=== PATIENT | male | born 1955 | race Caucasian/White ===

== ENCOUNTER 2016-06-17 15:39 | Emergency (ER) | payer OTHER ==
[2016-06-17] MEDS ORDERED: VANCOMYCIN INJ 2 GM in SODIUM CHLORIDE 0.9% 500 ML IV STA (16:01)
[2016-06-17] MEDS ORDERED: HYDROmorphone 1 MG/ML SYRINGE ONE ×2 (16:52→18:33)
[2016-06-17] MEDS ORDERED: HYDROmorphone 1 MG/ML SYRINGE IVP STA ×3 (16:52→18:33)
[2016-06-17] MEDS ORDERED: INSULIN REGULAR HUMAN 100 UNIT/1 ML 10 ML MDV IVP STA ×2 (17:00→18:11)
[2016-06-17] MEDS ORDERED: INSULIN REGULAR HUMAN 100 UNIT/1 ML 10 ML MDV ONE ×2 (17:02→18:17)
[2016-06-17] MEDS ORDERED: IBUPROFEN 800 MG TABLET PO STA (17:28)
[2016-06-17] MEDS ORDERED: ACETAMINOPHEN 325 MG TABLET PO STA (18:54)
[2016-06-17] MEDS ORDERED: ACETAMINOPHEN 325 MG TABLET PO ONE (18:55)
== END 2016-06-17 19:50 | disposition short-term general hospital (02) ==
DX: L03.115 Cellulitis of right lower limb (principal); L03.116 Cellulitis of left lower limb; E11.65 Type 2 diabetes mellitus with hyperglycemia; E11.42 Type 2 diabetes mellitus with diabetic polyneuropathy; I10 Essential (primary) hypertension; Z79.4 Long term (current) use of insulin; Z79.51 Long term (current) use of inhaled steroids
CPT/HCPCS: 36415; 80053; 83605; 83690; 85025; 85651; 86140; 87040; 87070; 87077; 87181; 87205; 96365; 96375; 96376; 99284; A9270; J1170; J1815; J3370

== ENCOUNTER 2016-07-14 09:15 | Outpatient (CLI) | payer OTHER | END 2016-07-14 09:16 | disposition EMS.NT | LOC: EMS 09:15 | PROVIDERS: ATTEND Surgery | DX: R68.89 Other general symptoms and signs (principal) ==

== ENCOUNTER 2017-01-04 15:43 | Outpatient (CLI) | payer OTHER ==
--- NOTE | 2017-01-05 13:24 | Ultrasound Report ---
ULTRASOUND LEFT LOWER LE01/04/2017 CLINICAL INDICATION: Persistent pain and swelling following abscess I and D, and antibiotics. TECHNIQUE: Real-time scanning was performed with leather goods sales representative static images obtained. FINDINGS: Ultrasound of the region of pain and swelling identified by the patient was performed. At this site, there is a residual 3.6 x 2.1 x 0.6 cm fluid collection, with edema in the surrounding fat. IMPRESSION: LIKELY RESIDUAL ABSCESS IN THE REGION OF THE PALPABLE ABNORMALITY. JOB #: [id number] EXT JOB #: [id number] [facility]
== END 2017-01-04 15:44 | disposition home or self-care (01) ==
LOC: DI 15:43
PROVIDERS: ATTEND Registered Nurse
DX: L02.416 Cutaneous abscess of left lower limb (principal); M79.662 Pain in left lower leg
CPT/HCPCS: 76882

== ENCOUNTER 2017-08-20 10:57 | Outpatient (CLI) | payer MEDICAID | END 2017-08-20 10:58 | disposition critical access hospital (66) | LOC: EMS 10:57 | PROVIDERS: ATTEND Surgery | DX: R10.31 Right lower quadrant pain (principal) | CPT/HCPCS: A0425; A0429 ==

== ENCOUNTER 2017-08-20 11:58 | Emergency (ER) | payer MEDICAID ==
[2017-08-20] MEDS ORDERED: HYDROmorphone 2 MG/ML VIAL IVP STA ×2 (12:20→14:52)
[2017-08-20 12:25] LABS: BASOPHILS # (AUTO) 0.1 10^3/uL (0.0-0.1); BASOPHILS % (AUTO) 0.7 %; EOSINOPHILS # (AUTO) 0.3 10^3/uL (0.0-0.7); EOSINOPHILS % (AUTO) 3.1 %; HGB - HEMOGLOBIN 12.8 g/dL (14.0-18.0); LYMPHOCYTES # (AUTO) 1.3 10^3/uL (1.5-3.5); LYMPHOCYTES % (AUTO) 11.4 %; MEAN CORPUSCULAR HEMOGLOBIN 31.2 pg (27.0-31.0); MEAN CORPUSCULAR VOLUME 91.8 fL (80.0-94.0); MEAN PLATELET VOLUME 7.2 fL (7.4-11.4); MONOCYTES % (AUTO) 9.1 %; NEUTROPHILS # (AUTO) 8.6 10^3/uL (1.5-6.6); NEUTROPHILS % (AUTO) 75.7 %; PLT - PLATELET COUNT 243 10^3/uL (130-450); RED CELL DISTRIBUTION WIDTH 14.3 % (12.0-15.0); WHITE BLOOD COUNT 11.3 x10^3/uL (4.8-10.8)
--- NOTE | 2017-08-20 12:25 | ED Physician Documentation ---
PD HPI ABD PAIN - Stated complaint Stated Complaint: ABD PAIN - Chief complaint Chief Complaint: Neuro - History obtained from History obtained from: Patient - History of Present Illness Timing - onset: Other (61-year-old gent with history of diabetes and partial colectomy for cancer in 2004 presents with 2 weeks of worsening right lower quadrant pain. It abruptly worsened about a week ago after a large meal and he was constipated for a few days but after taking milk of magnesia has had bowel movements every day for the last 5 days. He is not nauseous and he has not had any vomiting. He does know slightly dark urine. No fevers. He thinks he still has his appendix. Blood sugars have been uncontrolled.) Review of Systems Ten Systems: 10 systems reviewed and negative Constitutional: denies: Fever, Chills, Fatigue, Weight Loss Cardiac: denies: Chest pain / pressure, Palpitations Respiratory: denies: Dyspnea, Cough PD PAST MEDICAL HISTORY - Past Medical History Cardiovascular: Hypertension, High cholesterol, Other Respiratory: Asthma Neuro: Peripheral neuropathy Endocrine/Autoimmune: Type 2 diabetes GI: Chronic constipation, Other : Benign prostate hypertrophy HEENT: Chronic vision loss Psych: Depression Musculoskeletal: Osteoarthritis, Fatigue, Chronic back pain Derm: Other drug resistant infections - Past Surgical History Past Surgical History: Yes General: Bowel surgery, Colonoscopy - Present Medications Home Medications: Ambulatory Orders Medication Instructions Recorded Confirmed Lisinopril 40 mg PO DAILY 07/11/12 08/04/17 Oxybutynin [Ditropan] 5 mg PO DAILY 07/11/12 08/04/17 Albuterol Sulfate [Proair Hfa] 2 puffs INH Q4HR PRN 01/23/15 08/04/17 Furosemide 40 mg PO BID 11/15/15 08/04/17 Insulin Glargine,Hum.rec.anlog 98 mg SQ BID 06/17/16 08/04/17 [Lantus Solostar] Aspirin [Adult Low Dose Aspirin EC] 81 mg PO DAILY 07/22/16 08/04/17 Atorvastatin [Lipitor] 40 mg PO DAILY 07/22/16 08/04/17 Clopidogrel Bisulfate [Clopidogrel] 75 mg PO DAILY 08/20/17 Metformin HCl [Metformin HCl ER] 1,000 mg PO BID 08/20/17 Metoprolol Succinate 50 mg PO DAILY 08/20/17 Montelukast Sodium 10 mg PO DAILY 08/20/17 Nitroglycerin 0.4 mg SL PRN 08/20/17 Pantoprazole Sodium 20 mg PO DAILY 08/20/17 Potassium Chloride 20 meq PO DAILY 08/20/17 Tramadol HCl 50 mg PO DAILY 08/20/17 - Allergies Allergies/Adverse Reactions: Allergies Allergy/AdvReac Type Severity Reaction Status Date / Time codeine [Codeine] Allergy Rash Verified 12/17/16 16:09 Penicillins Allergy Respiratory Verified 12/17/16 16:09 bananas Allergy Respiratory Uncoded 08/30/13 10:39 peanuts Allergy Rash Uncoded 08/30/13 10:39 - Social History Does the pt smoke?: No Smoking Status: Never smoker - Family History Family history: reports: Non contributory - Immunizations Immunizations are current?: Yes PD ED PE NORMAL - Vitals Vital signs reviewed: Yes - General General: Alert and oriented X 3, No acute distress - HEENT HEENT: PERRL, EOMI - Neck Neck: Supple, no meningeal sign, No bony TTP - Cardiac Cardiac: RRR, No murmur - Respiratory Respiratory: No respiratory distress, Clear bilaterally - Abdomen Abdomen: Other (Tender in both lower quadrants with very mild guarding and no rebound tenderness, slightly diminished but not absent bowel tones, somewhat distended.) - Back Back: No CVA TTP, No spinal TTP - Derm Derm: Normal color, Warm and dry - Extremities Extremities: Other (He does have bilateral pitting pedal edema which he says is chronic) - Neuro Neuro: Alert and oriented X 3, Normal speech - Psych Psych: Normal mood, Normal affect Results - Vitals Vitals: Vital Signs - 24 hr 08/20/17 08/20/17 08/20/17 11:59 14:24 17:35 Temperature 36.9 C 37.0 C 36.8 C Heart Rate 84 81 78 Respiratory 20 20 16 Rate Blood Pressure 156/77 H 148/74 H 144/68 H O2 Saturation 96 96 99 Oxygen O2 Source Room air - Labs Labs: Laboratory Tests 08/20/17 08/20/17 08/20/17 12:16 12:16 14:29 WBC 11.3 H RBC 4.10 L Hgb 12.8 L Hct 37.7 L MCV 91.8 MCH 31.2 H MCHC 34.0 RDW 14.3 Plt Count 243 MPV 7.2 L Neut # (Auto) 8.6 H Lymph # (Auto) 1.3 L [place] # (Auto) 1.0 Eos # (Auto) 0.3 Baso # (Auto) 0.1 Absolute Nucleated RBC 0.00 Nucleated RBC % 0.0 Sodium 133 L Potassium 4.7 Chloride 97 L Carbon Dioxide 26 Anion Gap 10.0 BUN 21 H Creatinine 1.3 H Estimated GFR (MDRD) 56 L Glucose 291 H Calcium 8.9 Total Bilirubin 0.5 AST 18 ALT 20 Alkaline Phosphatase 82 Total Protein 7.1 Albumin 2.8 L Globulin 4.3 H Albumin/Globulin Ratio 0.7 L Lipase 17 L Urine Color YELLOW Urine Clarity CLEAR Urine pH 6.0 Ur Specific [place] 1.015 Urine Protein NEGATIVE Urine Glucose (UA) 100 H Urine Ketones NEGATIVE Urine Occult Blood NEGATIVE Urine Nitrite NEGATIVE Urine Bilirubin NEGATIVE Urine Urobilinogen 0.2 (NORMAL) Ur Leukocyte Esterase NEGATIVE Ur Microscopic Review NOT INDICATED Urine Culture Comments NOT INDICATED - Rads (name of study) CT A/P Radiology: EMP read contemporaneously (He has a 7.5 x 5.0 x 7.5 cm periappendiceal abscess.) PD MEDICAL DECISION MAKING - ED course ED course: 61-year-old gentleman with perforated appendicitis and large right lower quadrant abscess. Case is discussed by phone with the on-call surgeon, Dr. Ashwin Moy who felt he should be transferred somewhere with interventional radiology capability for IR guided drainage. We called [place] first, they were full so the talk then called [facility] using the [facility] transfer center. He received ciprofloxacin and Flagyl after blood cultures. [facility] was full, so was [facility], so was [facility]. He was accepted by Dr. Sarah Deutsch to [place] at 4:15 PM and cobras were completed. - Sepsis Event Vital Signs: Vital Signs - 24 hr 08/20/17 08/20/17 08/20/17 11:59 14:24 17:35 Temperature 36.9 C 37.0 C 36.8 C Heart Rate 84 81 78 Respiratory 20 20 16 Rate Blood Pressure 156/77 H 148/74 H 144/68 H O2 Saturation 96 96 99 Oxygen O2 Source Room air Departure - Departure Disposition: 02 Transfer Acute Care Hosp Clinical Impression: Ruptured appendicitis, Appendiceal abscess Condition: Stable Discharge Date/Time: 08/20/17 18:18
[2017-08-20 12:33] LABS: ALBUMIN 2.8 g/dL (3.2-5.5); ALBUMIN/GLOBULIN RATIO 0.7 (1.0-2.2); BILIRUBIN,TOTAL 0.5 mg/dL (0.2-1.0); CALCIUM 8.9 mg/dL (8.5-10.3); CREATININE 1.3 mg/dL (0.6-1.2); TOTAL PROTEIN 7.1 g/dL (6.7-8.2)
[2017-08-20] MEDS ORDERED: SODIUM CHLORIDE 0.9% 1,000 ML IV ONE (12:58)
[2017-08-20] MEDS ORDERED: IOPAMIDOL-300 100 ML VIAL ONE (13:39)
[2017-08-20] MEDS ORDERED: CIPROFLOXACIN 400 MG/200 ML 200 ML IV ONE (13:50)
[2017-08-20] MEDS ORDERED: metroNIDAZOLE 500 MG/100 ML 500 MG/100 ML BAG IV ONE (13:50)
[2017-08-20] MEDS ORDERED: IOPAMIDOL-300 100 ML VIAL IVP ONE (13:51)
--- NOTE | 2017-08-20 14:22 | CT Report ---
Procedure Date: 08/20/2017 Accession Number: [id number] / [id number] Procedure: CT - Abdomen/Pelvis W/ CPT Code: FULL RESULT: EXAM: CT ABDOMEN AND PELVIS EXAM DATE: 08/20/2017 01:50 PM. CLINICAL HISTORY: Right lower quadrant pain. COMPARISONS: ABDOMEN/PELVIS W/ 08/03/2017. TECHNIQUE: Routine helical CT imaging was performed through the abdomen and pelvis. IV contrast: 100 cc Isovue-300. Enteric contrast: No. Reconstructions: Coronal and sagittal. In accordance with CT protocol optimization, one or more of the following dose reduction techniques were utilized for this exam: automated exposure control, adjustment of mA and/or KV based on patient size, or use of iterative reconstructive technique. FINDINGS: Lung Bases: No focal consolidation. No pleural effusion. Mild to moderate cardiomegaly. Liver: Probable hepatic steatosis. No focal hepatic lesion demonstrated. Gallbladder/Bile Ducts: Unremarkable. Spleen: Normal. Pancreas: Atrophic as before. Otherwise no significant abnormality. Adrenal Glands: Normal. Kidneys: No hydronephrosis. Mildly patulous ureters as before. Mild to moderate bilateral perinephric stranding is similar to prior. Peritoneal Cavity/Bowel: No pneumoperitoneum or large ascites. No bowel obstruction or abnormal stool burden. Anastomotic sutures in the transverse colon as before. Diverticulosis without diverticulitis. Gas and fluid collection in the region where the appendix was previously visualized measures 7.5 x 5.0 x 7.5 cm. There is adjacent inflammatory stranding and small free fluid. The appendix itself is not well visualized beyond its proximal-most portion, inseparable from the collection. Pelvic Organs: The urinary bladder and visualized pelvic organs demonstrate no significant abnormality. Vasculature: Atherosclerosis without aneurysm. Bones: No significant abnormality. Other: Small fat-containing ventral hernias again demonstrated. IMPRESSION: 1. Interval development of a right lower quadrant abscess secondary to perforated appendicitis. 2. Chronic and incidental findings as above have not significantly changed compared to prior. [facility]
[2017-08-20 14:34] LABS: BILIRUBIN,URINE NEGATIVE (NEGATIVE); CLARITY,URINE CLEAR (CLEAR); GLUCOSE, URINE (UA) 100 mg/dL (NEGATIVE); KETONES,URINE (UA) NEGATIVE (NEGATIVE); LEUKOCYTE ESTERASE, URINE NEGATIVE (NEGATIVE); NITRITE,URINE NEGATIVE (NEGATIVE); OCCULT BLOOD,URINE NEGATIVE (NEGATIVE); PROTEIN,URINE NEGATIVE (NEGATIVE); UROBILINOGEN,URINE 0.2 (NORMAL) E.U./dL (NORMAL)
[2017-08-20 17:35] VITALS: BP 144/68
== END 2017-08-20 18:18 | disposition short-term general hospital (02) ==
LOC: EDUNIT# → EDBD → ED 11:58 → SUPCPDRO 11:58 → ED 18:18
DX: K35.2 Acute appendicitis with generalized peritonitis (principal); E11.9 Type 2 diabetes mellitus without complications; I10 Essential (primary) hypertension; E78.00 Pure hypercholesterolemia, unspecified; Z85.9 Personal history of malignant neoplasm, unspecified; Z79.84 Long term (current) use of oral hypoglycemic drugs; Z79.4 Long term (current) use of insulin
CPT/HCPCS: 36415; 74177; 80053; 81003; 83690; 85025; 87040; 96361; 96365; 96368; 96375; 99283; 99284; J1170; Q9967; 81001; 87086

== ENCOUNTER 2017-09-23 09:53 | Outpatient (CLI) | payer MEDICAID | END 2017-09-23 09:54 | disposition short-term general hospital (02) | LOC: EMS 09:53 | PROVIDERS: ATTEND Surgery | DX: R53.1 Weakness (principal); R06.02 Shortness of breath; W01.0XXA Fall on same level from slipping, tripping and stumbling without subsequent striking against object, initial encounter; Y93.01 Activity, walking, marching and hiking; Y92.008 Other place in unspecified non-institutional (private) residence as the place of occurrence of the external cause | CPT/HCPCS: A0425; A0427; A0999 ==

== ENCOUNTER 2017-11-10 11:50 | Outpatient (CLI) | payer MEDICAID | END 2017-11-10 11:51 | disposition short-term general hospital (02) | LOC: EMS 11:50 | PROVIDERS: ATTEND Surgery | DX: R07.9 Chest pain, unspecified (principal) | CPT/HCPCS: A0425; A0427; A0999 ==

== ENCOUNTER 2018-03-21 14:25 | Outpatient (CLI) | payer MEDICAID | END 2018-03-21 14:26 | disposition short-term general hospital (02) | LOC: EMS 14:25 | PROVIDERS: ATTEND Surgery | DX: R06.00 Dyspnea, unspecified (principal); R53.1 Weakness; R42 Dizziness and giddiness | CPT/HCPCS: A0170; A0425; A0427; A0999 ==

== ENCOUNTER 2018-05-02 08:00 | Outpatient (CLI) | payer MEDICAID ==
[2018-05-02 19:02] LABS: CALCIUM 9.1 mg/dL (8.5-10.3)
== END 2018-05-02 23:59 | disposition home or self-care (01) ==
LOC: LAB.R 08:00
PROVIDERS: ATTEND Registered Nurse
DX: I11.0 Hypertensive heart disease with heart failure (principal)
CPT/HCPCS: 80048

== ENCOUNTER 2018-05-16 08:00 | Outpatient (CLI) | payer MEDICAID ==
[2018-05-16 18:35] LABS: CREATININE 0.9 mg/dL (0.6-1.2)
== END 2018-05-16 23:59 | disposition home or self-care (01) ==
LOC: LAB.R 08:00
PROVIDERS: ATTEND Registered Nurse
DX: E11.51 Type 2 diabetes mellitus with diabetic peripheral angiopathy without gangrene (principal)
CPT/HCPCS: 80048

== ENCOUNTER 2019-04-03 14:20 | Outpatient (CLI) | payer MEDICARE | END 2019-04-03 14:21 | disposition short-term general hospital (02) | LOC: EMS 14:20 | PROVIDERS: ATTEND Surgery | DX: R06.00 Dyspnea, unspecified (principal); R07.9 Chest pain, unspecified | CPT/HCPCS: A0425; A0427 ==

== ENCOUNTER 2019-07-25 08:38 | Outpatient (CLI) | payer MEDICARE ==
[2019-07-25 09:13] LABS: CALCIUM 9.1 mg/dL (8.5-10.3); CREATININE 1.6 mg/dL (0.6-1.2)
== END 2019-07-25 08:39 | disposition home or self-care (01) ==
LOC: LAB 08:38
PROVIDERS: ATTEND Registered Nurse
DX: I50.33 Acute on chronic diastolic (congestive) heart failure (principal)
CPT/HCPCS: 36415; 80048

== ENCOUNTER 2019-08-09 09:31 | Outpatient (CLI) | payer MEDICARE ==
[2019-08-09 10:03] LABS: CALCIUM 9.2 mg/dL (8.5-10.3); CREATININE 1.7 mg/dL (0.6-1.2)
== END 2019-08-09 09:32 | disposition home or self-care (01) ==
LOC: LAB 09:31
PROVIDERS: ATTEND Registered Nurse
DX: N17.9 Acute kidney failure, unspecified (principal)
CPT/HCPCS: 36415; 80048

== ENCOUNTER 2019-08-09 10:32 | Emergency (ER) | payer MEDICARE ==
[2019-08-09 10:54] LABS: BASOPHILS # (AUTO) 0.1 10^3/uL (0.0-0.1); BASOPHILS % (AUTO) 0.6 %; EOSINOPHILS # (AUTO) 0.4 10^3/uL (0.0-0.7); HGB - HEMOGLOBIN 12.4 g/dL (14.0-18.0); LYMPHOCYTES # (AUTO) 1.6 10^3/uL (1.5-3.5); LYMPHOCYTES % (AUTO) 18.2 %; MEAN CORPUSCULAR HEMOGLOBIN 32.5 pg (27.0-31.0); MEAN CORPUSCULAR HGB CONC 35.8 g/dL (32.0-36.0); MEAN CORPUSCULAR VOLUME 90.8 fL (80.0-94.0); MEAN PLATELET VOLUME 9.6 fL (7.4-11.4); MONOCYTES # (AUTO) 0.6 10^3/uL (0.0-1.0); MONOCYTES % (AUTO) 7.4 %; NEUTROPHILS # (AUTO) 5.8 10^3/uL (1.5-6.6); NEUTROPHILS % (AUTO) 68.3 %; PLT - PLATELET COUNT 134 10^3/uL (130-450); RED BLOOD COUNT 3.81 10^6/uL (4.70-6.10); RED CELL DISTRIBUTION WIDTH 13.7 % (12.0-15.0); WHITE BLOOD COUNT 8.5 x10^3/uL (4.8-10.8)
[2019-08-09 11:10] LABS: ALBUMIN 3.2 g/dL (3.2-5.5); ALBUMIN/GLOBULIN RATIO 1.1 (1.0-2.2); BILIRUBIN,TOTAL 0.8 mg/dL (0.2-1.0); CREATININE 1.9 mg/dL (0.6-1.2); TOTAL PROTEIN 6.2 g/dL (6.7-8.2)
--- NOTE | 2019-08-09 11:14 | XRAY Report ---
PROCEDURE: Chest 1 View X-Ray INDICATIONS: Chest pain TECHNIQUE: One view of the chest was acquired. COMPARISON: None. FINDINGS: Surgical changes and devices: None. Lungs and pleura: No pleural effusions or pneumothorax. Lungs are clear. Mediastinum: Mediastinal contours appear normal. Heart size is normal. Bones and chest wall: No suspicious bony lesions. Overlying soft tissues appear unremarkable. IMPRESSION: No acute disease Reviewed by: Moe Roberts MD on 08/09/2019 11:13 AM PDT Approved by: Moe Roberts MD on 08/09/2019 11:13 AM PDT Station ID: [id number]
[2019-08-09] MEDS ORDERED: SODIUM CHLORIDE 0.9% 1,000 ML IV STA ×2 (11:21→13:00)
--- NOTE | 2019-08-09 11:28 | ED Physician Documentation ---
History of Present Illness - Stated complaint Stated Complaint: WEAKNESS - Chief complaint Chief Complaint: General - History obtained from History obtained from: Patient - History of Present Illness Timing: How many weeks ago (3) - Additonal information Additional information: 63-year-old male with a history of diabetes hypertension and is status post colon resection for colon cancer in remission has been followed at the wound clinic in the [facility] and today he went in for his final appointment and was noted to be profoundly weak. He was so weak he could not stand up from the exam table. He indicates that his weakness has been present for the past 3 weeks and it has come and gone and at times he is not able to stand up because of the weakness. He felt today that he might collapse on the way into the hospital. He is taking some Lasix for congestive heart failure and he has diabetes. He indicates that his sugars have been running in the upper 100 range. He is getting up 5-6 times per night to urinate. His weakness has been undulating over the past 3 weeks Review of Systems Constitutional: denies: Fever Eyes: denies: Decreased vision Ears: denies: Ear pain Nose: denies: Congestion Throat: denies: Sore throat Cardiac: reports: Chest pain / pressure, Pedal edema. denies: Palpitations, Calf pain Respiratory: reports: Dyspnea. denies: Cough GI: denies: Abdominal Pain, Nausea, Vomiting : reports: Frequency. denies: Dysuria PD PAST MEDICAL HISTORY - Past Medical History Past Medical History: Yes Cardiovascular: Congestive heart failure, Hypertension, High cholesterol, Other Respiratory: Asthma Neuro: Peripheral neuropathy Endocrine/Autoimmune: Type 2 diabetes GI: Chronic constipation, Other : Benign prostate hypertrophy, Retention HEENT: Chronic vision loss Psych: Depression Musculoskeletal: Osteoarthritis, Fatigue, Chronic back pain Derm: Other drug resistant infections Other Past Medical History: 1* AV block, systolic heart failure, dependent e heath, thrombocytopenia, - Past Surgical History Past Surgical History: Yes General: Appendectomy, Bowel surgery, Colonoscopy Cardiovascular: Coronary stent - Present Medications Home Medications: Ambulatory Orders Medication Instructions Recorded Confirmed Lisinopril 40 mg PO DAILY 07/11/12 07/25/19 Insulin Glargine,Hum.rec.anlog 44 units SQ DAILY 06/17/16 07/25/19 [Lantus Solostar] Aspirin [Adult Low Dose Aspirin EC] 81 mg PO DAILY 07/22/16 07/25/19 Atorvastatin [Lipitor] 40 mg PO DAILY 07/22/16 07/25/19 Metformin HCl [Metformin ER 1,000 mg PO BID 08/20/17 07/25/19 Osmotic] Metoprolol Succinate 100 mg PO BID 08/20/17 07/25/19 Pantoprazole Sodium 40 mg PO DAILY 08/20/17 07/25/19 Insulin Lispro [Humalog] 30 - 34 units SUBQ BID 01/25/19 08/02/19 Multivitamin [Multiple Vitamins] 1 each PO DAILY 01/25/19 07/25/19 Spironolactone 25 mg PO DAILY 01/25/19 07/25/19 Levofloxacin [Levaquin] 750 mg PO DAILY 01/30/19 07/25/19 Albuterol Sulfate [Proair Hfa 2 puffs PO Q6HR PRN 07/25/19 07/25/19 Inhaler] Fluticasone Propionate 2 spray ERVIN DAILY 07/25/19 07/25/19 Lidocaine 1 applic TD TID PRN 07/25/19 07/25/19 Nitroglycerin 1 tab PO DAILY PRN 07/25/19 07/25/19 Torsemide 20 mg PO DAILY 07/25/19 07/25/19 Triamcinolone 0.1% Cream [Kenalog 1 applic TD BID PRN 07/25/19 07/25/19 0.1% Cream] - Allergies Allergies/Adverse Reactions: Allergies Allergy/AdvReac Type Severity Reaction Status Date / Time banana Allergy Respiratory Verified 08/09/19 10:45 codeine [Codeine] Allergy Rash Verified 08/09/19 10:45 peanut Allergy Rash Verified 08/09/19 10:45 Penicillins Allergy Respiratory Verified 08/09/19 10:45 tamsulosin AdvReac Unknown Verified 08/09/19 10:45 - Social History Does the pt smoke?: No Smoking Status: Never smoker Does the pt drink ETOH?: No Does the pt have substance abuse?: No - Immunizations Immunizations are current?: Yes - POLST Patient has POLST: No PD ED PE NORMAL - Vitals Vital signs reviewed: Yes (wide pulse pressure) - General General: Alert and oriented X 3, No acute distress, Well developed/nourished - HEENT HEENT: Atraumatic, PERRL, EOMI, Other (dry mucous membranes ) - Neck Neck: Supple, no meningeal sign, No bony TTP - Cardiac Cardiac: RRR, No murmur - Respiratory Respiratory: No respiratory distress, Clear bilaterally - Abdomen Abdomen: Normal bowel sounds, Soft, Non tender, Non distended, No organomegaly, Other (obese) - Back Back: No CVA TTP, No spinal TTP - Derm Derm: Normal color, Warm and dry, No rash - Extremities Extremities: No deformity, No calf tenderness / cord, Other (trace edema only ) - Neuro Neuro: Alert and oriented X 3, terminal computer operator 2-12 intact, No motor deficit, Normal speech Eye Opening: Spontaneous Motor: Obeys Commands Verbal: Oriented GCS Score: 15 - Psych Psych: Normal mood, Normal affect Results - Vitals Vitals: Vital Signs - 24 hr 08/09/19 08/09/19 08/09/19 10:32 11:05 11:52 Temperature 36.9 C Heart Rate 73 68 68 Respiratory 20 20 14 Rate Blood Pressure 139/62 H 140/58 H 131/74 H O2 Saturation 99 95 97 08/09/19 08/09/19 13:18 13:31 Temperature Heart Rate 70 68 Respiratory 20 16 Rate Blood Pressure 148/128 H 148/99 H O2 Saturation 100 98 Oxygen O2 Source Room air - EKG (time done) 1040 Rate: Rate (enter#) (68) [place]: LAD Compare to prior EKG: Unchanged from prior EKG (SPT 11-10-2017 no sig change) Computer interpretation: Agree with computer - Labs Labs: Laboratory Tests 08/09/19 08/09/19 08/09/19 10:46 10:46 10:46 WBC 8.5 RBC 3.81 L Hgb 12.4 L Hct 34.6 L MCV 90.8 MCH 32.5 H MCHC 35.8 RDW 13.7 Plt Count 134 MPV 9.6 Neut # (Auto) 5.8 Lymph # (Auto) 1.6 [place] # (Auto) 0.6 Eos # (Auto) 0.4 Baso # (Auto) 0.1 Absolute Nucleated RBC 0.00 Nucleated RBC % 0.0 Sodium 137 Potassium 4.5 Chloride 98 L Carbon Dioxide 28 Anion Gap 11.0 BUN 31 H Creatinine 1.9 H Estimated GFR (MDRD) 36 L Glucose 287 H Calcium 9.0 Total Bilirubin 0.8 AST 19 ALT 19 Alkaline Phosphatase 60 Troponin I High Sens 16.8 Total Protein 6.2 L Albumin 3.2 Globulin 3.0 Albumin/Globulin Ratio 1.1 Lipase 22 Urine Color Urine Clarity Urine pH Ur Specific [place] Urine Protein Urine Glucose (UA) Urine Ketones Urine Occult Blood Urine Nitrite Urine Bilirubin Urine Urobilinogen Ur Leukocyte Esterase Urine RBC Urine WBC Ur Squamous Epith Cells Urine Bacteria Urine Casts Ur Microscopic Review Urine Culture Comments 08/09/19 13:17 WBC RBC Hgb Hct MCV MCH MCHC RDW Plt Count MPV Neut # (Auto) Lymph # (Auto) [place] # (Auto) Eos # (Auto) Baso # (Auto) Absolute Nucleated RBC Nucleated RBC % Sodium Potassium Chloride Carbon Dioxide Anion Gap BUN Creatinine Estimated GFR (MDRD) Glucose Calcium Total Bilirubin AST ALT Alkaline Phosphatase Troponin I High Sens Total Protein Albumin Globulin Albumin/Globulin Ratio Lipase Urine Color YELLOW Urine Clarity CLEAR Urine pH 6.0 Ur Specific [place] 1.020 Urine Protein 100 H Urine Glucose (UA) NEGATIVE Urine Ketones NEGATIVE Urine Occult Blood TRACE-INTA Urine Nitrite NEGATIVE Urine Bilirubin NEGATIVE Urine Urobilinogen 0.2 (NORMAL) Ur Leukocyte Esterase NEGATIVE Urine RBC 0-5 Urine WBC 0-3 Ur Squamous Epith Cells NONE SEEN Urine Bacteria Few Urine Casts 0-2 Fine Granular Ur Microscopic Review INDICATED Urine Culture Comments NOT INDICATED - Rads (name of study) chest Radiology: Prelim report reviewed (Impression: No acute disease.), EMP read indepedently, See rad report Procedures - IVC sono (time) 1108 Bedside IVC sono: IVC measures (cm) (0.97), IVC collapsed c insp (cm) (compl ete), Dehydration (est 2 liter deficit) PD MEDICAL DECISION MAKING - ED course Complexity details: reviewed results, re-evaluated patient, considered differential, d/w patient ED course: 63-year-old diabetic male presents to the emergency department with profound weakness. His weakness has been undulating over the past 3 weeks. He is found to be dehydrated on interrogation of the inferior vena cava and intravenous saline is begun. After 1 L of saline is in the patient is able to stand at the side of the bed he still complains of some mild dizziness associated with this lightheadedness. A second liter of saline is administered. Departure - Departure Disposition: 01 Home, Self Care Clinical Impression: Dehydration Condition: Stable Instructions: ED Dehydration Follow-Up: Rosanna Beck ARNP [Primary Care Provider] -
[2019-08-09] MEDS ORDERED: INSULIN REGULAR HUMAN 100 UNIT/1 ML 10 ML MDV IVP STA (11:33)
[2019-08-09] MEDS ORDERED: ACETAMINOPHEN 325 MG TABLET PO STA (12:00)
[2019-08-09 13:35] LABS: BILIRUBIN,URINE NEGATIVE (NEGATIVE); GLUCOSE, URINE (UA) NEGATIVE (NEGATIVE); KETONES,URINE (UA) NEGATIVE (NEGATIVE); LEUKOCYTE ESTERASE, URINE NEGATIVE (NEGATIVE); NITRITE,URINE NEGATIVE (NEGATIVE); OCCULT BLOOD,URINE TRACE-INTA (NEGATIVE); PROTEIN,URINE 100 mg/dL (NEGATIVE); UROBILINOGEN,URINE 0.2 (NORMAL) E.U./dL (NORMAL)
[2019-08-09 13:45] LABS: CLARITY,URINE CLEAR (CLEAR)
[2019-08-09 13:59] LABS: BACTERIA,URINE Few /HPF (None Seen); CASTS, URINE 0-2 Fine Granular /LPF; RBC,URINE 0-5 /HPF (0-5); SQUAMOUS EPITHELIAL CELL,UR NONE SEEN (<= Few)
[2019-08-09 14:49] VITALS: BP 160/82
== END 2019-08-09 15:00 | disposition home or self-care (01) ==
LOC: ED 10:32
DX: E86.0 Dehydration (principal); E11.42 Type 2 diabetes mellitus with diabetic polyneuropathy; Z79.4 Long term (current) use of insulin; I11.0 Hypertensive heart disease with heart failure; I50.20 Unspecified systolic (congestive) heart failure; Z79.82 Long term (current) use of aspirin; N40.1 Benign prostatic hyperplasia with lower urinary tract symptoms; R33.8 Other retention of urine; Z85.038 Personal history of other malignant neoplasm of large intestine; Z90.49 Acquired absence of other specified parts of digestive tract; N17.9 Acute kidney failure, unspecified
CPT/HCPCS: 36415; 71045; 80048; 80053; 81001; 83690; 84484; 85025; 93005; 96360; 96361; 99284; A9270; J1815; 81003; 87086

== ENCOUNTER 2019-10-23 13:33 | Outpatient (CLI) | payer MEDICARE ==
[2019-10-23 20:30] LABS: CALCIUM 9.3 mg/dL (8.5-10.3)
[2019-10-23 20:32] LABS: BILIRUBIN,URINE NEGATIVE (NEGATIVE); GLUCOSE, URINE (UA) 500 mg/dL (NEGATIVE); KETONES,URINE (UA) NEGATIVE (NEGATIVE); LEUKOCYTE ESTERASE, URINE NEGATIVE (NEGATIVE); NITRITE,URINE NEGATIVE (NEGATIVE); OCCULT BLOOD,URINE TRACE-INTA (NEGATIVE); PROTEIN,URINE 100 mg/dL (NEGATIVE); UROBILINOGEN,URINE 0.2 (NORMAL) E.U./dL (NORMAL)
[2019-10-23 20:39] LABS: CLARITY,URINE HAZY (CLEAR)
[2019-10-23 20:54] LABS: BACTERIA,URINE Few /HPF (None Seen); MUCUS,URINE Few Strands; RBC,URINE 0-5 /HPF (0-5); SQUAMOUS EPITHELIAL CELL,UR MANY Squamous (<= Few)
[2019-10-23 20:55] LABS: CASTS, URINE 11-25 Hyaline Casts /LPF; SPERM,URINE PRESENT
== END 2019-10-23 13:34 | disposition home or self-care (01) ==
LOC: LAB.S 13:33
PROVIDERS: ATTEND Internal Medicine Nephrology
DX: M32.10 Systemic lupus erythematosus, organ or system involvement unspecified (principal); N00.9 Acute nephritic syndrome with unspecified morphologic changes; I77.6 Arteritis, unspecified; D47.2 Monoclonal gammopathy; R39.15 Urgency of urination; I50.32 Chronic diastolic (congestive) heart failure; E83.30 Disorder of phosphorus metabolism, unspecified; N25.81 Secondary hyperparathyroidism of renal origin; I50.9 Heart failure, unspecified; M81.0 Age-related osteoporosis without current pathological fracture; N25.0 Renal osteodystrophy
CPT/HCPCS: 36415; 80048; 81001; 81599; 82570; 83520; 83880; 83970; 84100; 84155; 84156; 84165; 84166; 86021; 86225; 86334; 86335; 87086

== ENCOUNTER 2020-02-05 06:25 | Outpatient (CLI) | payer MEDICARE | END 2020-02-05 06:26 | disposition short-term general hospital (02) | LOC: EMS 06:25 | PROVIDERS: ATTEND Surgery | DX: R06.00 Dyspnea, unspecified (principal); R42 Dizziness and giddiness; R07.9 Chest pain, unspecified | CPT/HCPCS: A0425; A0427 ==

== ENCOUNTER 2020-03-26 12:45 | Outpatient (CLI) | payer MEDICARE ==
[2020-03-26 14:35] LABS: BASOPHILS % (AUTO) 0.5 %; EOSINOPHILS # (AUTO) 0.5 10^3/uL (0.0-0.7); EOSINOPHILS % (AUTO) 5.8 %; HGB - HEMOGLOBIN 11.8 g/dL (14.0-18.0); LYMPHOCYTES # (AUTO) 1.5 10^3/uL (1.5-3.5); LYMPHOCYTES % (AUTO) 19.4 %; MEAN CORPUSCULAR HEMOGLOBIN 31.5 pg (27.0-31.0); MEAN CORPUSCULAR HGB CONC 35.1 g/dL (32.0-36.0); MEAN CORPUSCULAR VOLUME 89.6 fL (80.0-94.0); MEAN PLATELET VOLUME 10.1 fL (7.4-11.4); MONOCYTES # (AUTO) 0.6 10^3/uL (0.0-1.0); NEUTROPHILS # (AUTO) 5.2 10^3/uL (1.5-6.6); NEUTROPHILS % (AUTO) 65.9 %; PLT - PLATELET COUNT 154 10^3/uL (130-450); RED BLOOD COUNT 3.75 10^6/uL (4.70-6.10); RED CELL DISTRIBUTION WIDTH 13.4 % (12.0-15.0); WHITE BLOOD COUNT 7.9 x10^3/uL (4.8-10.8)
[2020-03-26 14:49] LABS: CALCIUM 9.4 mg/dL (8.5-10.3)
[2020-03-26 15:37] LABS: HEMOGLOBIN A1c% 8.8 % (4.27-6.07)
== END 2020-03-26 23:59 | disposition home or self-care (01) ==
LOC: LAB.R 12:45
PROVIDERS: ATTEND Registered Nurse
DX: E11.22 Type 2 diabetes mellitus with diabetic chronic kidney disease (principal); E11.65 Type 2 diabetes mellitus with hyperglycemia
CPT/HCPCS: 36415; 80048; 83036; 85025

== ENCOUNTER 2020-04-05 13:35 | Outpatient (CLI) | payer MEDICARE, MEDICAID ==
[2020-04-05 15:27] LABS: CALCIUM 9.4 mg/dL (8.5-10.3); CREATININE 2.1 mg/dL (0.6-1.2)
== END 2020-04-05 23:59 | disposition home or self-care (01) ==
LOC: LAB.R 13:35
PROVIDERS: ATTEND Registered Nurse
DX: E11.22 Type 2 diabetes mellitus with diabetic chronic kidney disease (principal); L97.221 Non-pressure chronic ulcer of left calf limited to breakdown of skin
CPT/HCPCS: 80048; 87070; 87077; 87181; 87205

== ENCOUNTER 2020-04-09 12:45 | Outpatient (CLI) | payer MEDICARE, MEDICAID ==
[2020-04-09 15:17] LABS: CALCIUM 9.2 mg/dL (8.5-10.3); CREATININE 2.5 mg/dL (0.6-1.2)
== END 2020-04-09 23:59 | disposition home or self-care (01) ==
LOC: LAB.R 12:45
PROVIDERS: ATTEND Registered Nurse
DX: E87.5 Hyperkalemia (principal)
CPT/HCPCS: 36415; 80048

== ENCOUNTER 2020-04-25 13:03 | Outpatient (CLI) | payer MEDICARE, MEDICAID ==
--- NOTE | 2020-04-25 14:33 | XRAY Report ---
PROCEDURE: Knee 3 View LT INDICATIONS: CONTUSION OF LEFT KNEE TECHNIQUE: 3 views of the left knee were acquired. COMPARISON: Left knee radiographs 02/02/2018 FINDINGS: Bones: No acute fractures or dislocations. No suspicious bony lesions. There is mild narrowing of the medial femorotibial compartment joint space. Soft tissues: Small joint effusion. No suspicious soft tissue calcifications. IMPRESSION: No acute osseous abnormality. Small joint effusion. If there is clinical concern or pers istent symptoms, additional imaging such as repeat radiographs or advanced imaging (e.g. CT, MRI) may be helpful for further evaluation. Reviewed by: Yefri Ricks MD on 04/25/2020 2:31 PM PST Approved by: Yefri Ricks MD on 04/25/2020 2:31 PM PST Station ID: [id number]
== END 2020-04-25 13:04 | disposition home or self-care (01) ==
LOC: DI.S 13:03
PROVIDERS: ATTEND Registered Nurse
DX: S80.02XA Contusion of left knee, initial encounter (principal)

== ENCOUNTER 2020-06-07 08:00 | Outpatient (CLI) | payer MEDICARE, MEDICAID ==
[2020-06-07 21:43] LABS: CREATININE 2.5 mg/dL (0.6-1.2); PHOSPHORUS 4.3 mg/dL (2.5-4.6)
[2020-06-07 22:03] LABS: POTASSIUM 6.2 mmol/L (3.5-5.0)
[2020-06-14 08:34] LABS: IMMUNOGLOBULIN A 342 (H); IMMUNOGLOBULIN G 1018
[2020-06-14 08:35] LABS: IMMUNOGLOBULIN M 31 (L)
== END 2020-06-07 23:59 | disposition home or self-care (01) ==
LOC: LAB.S 08:00
PROVIDERS: ATTEND Registered Nurse
DX: I50.22 Chronic systolic (congestive) heart failure (principal); N18.4 Chronic kidney disease, stage 4 (severe); R89.4 Abnormal immunological findings in specimens from other organs, systems and tissues
CPT/HCPCS: 36415; 80048; 81599; 82784; 83880; 83970; 84100; 84155; 84165

== ENCOUNTER 2020-06-14 13:15 | Outpatient (CLI) | payer MEDICARE, MEDICAID | END 2020-06-14 23:59 | disposition home or self-care (01) | LOC: LAB.R 13:15 | PROVIDERS: ATTEND Registered Nurse | DX: L97.221 Non-pressure chronic ulcer of left calf limited to breakdown of skin (principal) | CPT/HCPCS: 87070; 87077; 87181; 87205 ==

== ENCOUNTER 2020-06-25 08:00 | Outpatient (CLI) | payer MEDICARE, MEDICAID ==
[2020-06-25 14:42] LABS: CALCIUM 9.6 mg/dL (8.5-10.3); CREATININE 3.2 mg/dL (0.6-1.2)
== END 2020-06-25 23:59 | disposition home or self-care (01) ==
LOC: LAB.R 08:00
PROVIDERS: ATTEND Registered Nurse
DX: E11.42 Type 2 diabetes mellitus with diabetic polyneuropathy (principal)
CPT/HCPCS: 80048

== ENCOUNTER 2020-08-20 02:35 | Outpatient (CLI) | payer MEDICARE, MEDICAID | END 2020-08-20 02:36 | disposition critical access hospital (66) | LOC: EMS 02:35 | DX: R53.1 Weakness (principal); R19.7 Diarrhea, unspecified | CPT/HCPCS: A0425; A0427 ==

== ENCOUNTER 2020-08-20 03:08 | Emergency (ER) | payer MEDICARE, MEDICAID ==
[2020-08-20] MEDS ORDERED: SODIUM CHLORIDE 0.9% 1,000 ML IV STA (03:27)
--- NOTE | 2020-08-20 04:04 | ED Physician Documentation ---
History of Present Illness - Stated complaint Stated Complaint: WEAKNESS - Chief complaint Chief Complaint: Neuro - History obtained from History obtained from: Patient, EMS - History of Present Illness Timing: Today Pain level max: 0 Pain level now: 0 - Additonal information Additional information: BIBA. patient tells me he woke up on the floor, having apparently rolled off / fallen out of bed. he found that he was very weak, generalized weakness. he was too weak to stand back up and family couldnt get him back up and thus called 911. EMS found patient in very hot room (current heat wave), and forehead temp was 103. they also note patients mentation was mildly confused, slow with some answers. however, once he was loaded into the ambulance, temp rechecked and is normal, and his mentation returned to baseline, and weakness has nearly resolved. FSBS 267 en route Review of Systems Constitutional: reports: Reviewed and negative Eyes: reports: Reviewed and negative Cardiac: reports: Reviewed and negative Respiratory: reports: Reviewed and negative GI: reports: Reviewed and negative : denies: Dysuria, Frequency Skin: reports: Reviewed and negative Musculoskeletal: reports: Reviewed and negative Neurologic: reports: Generalized weakness, Confused (resolved). denies: Focal weakness, Numbness, Headache, LOC PD PAST MEDICAL HISTORY - Past Medical History Past Medical History: Yes Cardiovascular: Congestive heart failure, Hypertension, High cholesterol, Other Respiratory: Asthma Neuro: Peripheral neuropathy Endocrine/Autoimmune: Type 2 diabetes GI: Chronic constipation : Benign prostate hypertrophy, Retention, Incontinence, Renal insuffiency HEENT: Chronic vision loss Psych: Depression Musculoskeletal: Osteoarthritis, Fatigue, Chronic back pain Derm: Other drug resistant infections - Past Surgical History Past Surgical History: Yes General: Appendectomy, Bowel surgery, Colonoscopy Cardiovascular: Coronary stent - Present Medications Home Medications: Ambulatory Orders Medication Instructions Recorded Confirmed Lisinopril 40 mg PO DAILY 07/11/12 08/20/20 Insulin Glargine,Hum.rec.anlog 84 units SQ DAILY 06/17/16 08/20/20 [Lantus Solostar] Aspirin [Adult Low Dose Aspirin EC] 81 mg PO DAILY 07/22/16 08/20/20 Atorvastatin [Lipitor] 40 mg PO DAILY 07/22/16 08/20/20 Metoprolol Succinate 100 mg PO BID 08/20/17 08/20/20 Pantoprazole Sodium 40 mg PO DAILY 08/20/17 08/20/20 Insulin Lispro [Humalog] 34 units SUBQ DAILYWM 01/25/19 08/20/20 Multivitamin [Multiple Vitamins] 1 each PO DAILY 01/25/19 08/20/20 Spironolactone 25 mg PO DAILY 01/25/19 08/20/20 Albuterol Sulfate [Proair Hfa 2 puffs PO Q6HR PRN 07/25/19 08/20/20 Inhaler] Lidocaine 1 applic TD TID PRN 07/25/19 08/20/20 Nitroglycerin 1 tab PO DAILY PRN 07/25/19 08/20/20 Torsemide 20 mg PO DAILY 07/25/19 08/20/20 amLODIPine [Norvasc] 2.5 mg PO DAILY 01/11/20 08/20/20 - Allergies Allergies/Adverse Reactions: Allergies Allergy/AdvReac Type Severity Reaction Status Date / Time banana Allergy Respiratory Verified 08/20/20 03:09 codeine [Codeine] Allergy Rash Verified 08/20/20 03:09 peanut Allergy Rash Verified 08/20/20 03:09 Penicillins Allergy Respiratory Verified 08/20/20 03:09 tamsulosin AdvReac Unknown Verified 08/20/20 03:09 - Social History Does the pt smoke?: No Smoking Status: Never smoker Does the pt drink ETOH?: No Does the pt have substance abuse?: No - Immunizations Immunizations are current?: Yes - POLST Patient has POLST: No PD ED PE NORMAL - Vitals Vital signs reviewed: Yes - General General: Alert and oriented X 3, No acute distress, Well developed/nourished - HEENT HEENT: Atraumatic, PERRL, EOMI, Moist mucous membranes - Neck Neck: Supple, no meningeal sign - Cardiac Cardiac: RRR, No murmur, No gallop, No rub - Respiratory Respiratory: No respiratory distress, Clear bilaterally - Abdomen Abdomen: Soft, Non tender, Other (obese) - Back Back: No CVA TTP - Derm Derm: Normal color, Warm and dry - Extremities Extremities: No edema - Neuro Neuro: Alert and oriented X 3, No motor deficit, No sensory deficit, Normal speech Eye Opening: Spontaneous Motor: Obeys Commands Verbal: Oriented GCS Score: 15 Results - Vitals Vitals: Oxygen O2 Source Room air - EKG (time done) No standard instances Rate: Rate (enter#) (95) Rhythm: NSR [place]: LAD Intervals: Normal [place] QRS: Normal Ischemia: Normal ST segments - Labs Labs: Laboratory Tests 08/20/20 08/20/20 08/20/20 04:14 04:14 04:14 WBC 11.9 H RBC 3.32 L Hgb 10.4 L Hct 30.4 L MCV 91.6 MCH 31.3 H MCHC 34.2 RDW 13.2 Plt Count 195 MPV 9.5 Neut # (Auto) 8.8 H Lymph # (Auto) 1.7 [place] # (Auto) 1.1 H Eos # (Auto) 0.2 Baso # (Auto) 0.1 Absolute Nucleated RBC 0.00 Nucleated RBC % 0.0 Sodium 134 L Potassium 4.7 Chloride 100 L Carbon Dioxide 25 Anion Gap 9.0 BUN 55 H Creatinine 3.1 H Estimated GFR (MDRD) 20 L Glucose 288 H Calcium 8.6 Total Bilirubin 0.9 AST 18 ALT 17 Alkaline Phosphatase 57 B-Natriuretic Peptide 212 H Total Protein 6.8 Albumin 3.4 Globulin 3.4 Albumin/Globulin Ratio 1.0 Lipase 17 L - Rads (name of study) C[facility] Radiology: Prelim report reviewed, See rad report PD MEDICAL DECISION MAKING - ED course Complexity details: reviewed old records, reviewed results, re-evaluated patient, considered differential, d/w patient Departure - Departure Disposition: 01 Home, Self Care Clinical Impression: Weakness Condition: Good Instructions: ED Weakness [facility] Follow-Up: Rosanna Beck ARNP [Primary Care Provider] - Discharge Date/Time: 08/20/20 11:46
[2020-08-20 04:19] LABS: BASOPHILS # (AUTO) 0.1 10^3/uL (0.0-0.1); BASOPHILS % (AUTO) 0.6 %; EOSINOPHILS # (AUTO) 0.2 10^3/uL (0.0-0.7); EOSINOPHILS % (AUTO) 1.7 %; HCT - HEMATOCRIT 30.4 % (42.0-52.0); HGB - HEMOGLOBIN 10.4 g/dL (14.0-18.0); LYMPHOCYTES # (AUTO) 1.7 10^3/uL (1.5-3.5); LYMPHOCYTES % (AUTO) 14.1 %; MEAN CORPUSCULAR HEMOGLOBIN 31.3 pg (27.0-31.0); MEAN CORPUSCULAR HGB CONC 34.2 g/dL (32.0-36.0); MEAN CORPUSCULAR VOLUME 91.6 fL (80.0-94.0); MEAN PLATELET VOLUME 9.5 fL (7.4-11.4); MONOCYTES # (AUTO) 1.1 10^3/uL (0.0-1.0); MONOCYTES % (AUTO) 8.9 %; NEUTROPHILS # (AUTO) 8.8 10^3/uL (1.5-6.6); NEUTROPHILS % (AUTO) 74.1 %; PLT - PLATELET COUNT 195 10^3/uL (130-450); RED BLOOD COUNT 3.32 10^6/uL (4.70-6.10); RED CELL DISTRIBUTION WIDTH 13.2 % (12.0-15.0); WHITE BLOOD COUNT 11.9 x10^3/uL (4.8-10.8)
[2020-08-20 04:31] LABS: ALBUMIN 3.4 g/dL (3.2-5.5); BILIRUBIN,TOTAL 0.9 mg/dL (0.2-1.0); CALCIUM 8.6 mg/dL (8.5-10.3); CREATININE 3.1 mg/dL (0.6-1.2); POTASSIUM 4.7 mmol/L (3.5-5.0); TOTAL PROTEIN 6.8 g/dL (6.7-8.2)
--- NOTE | 2020-08-20 07:21 | CT Report ---
PROCEDURE: HEAD WO INDICATIONS: AMS TECHNIQUE: Noncontrast 4.5 mm thick angled axial sections acquired from the foramen magnum to the vertex. For r adiation dose reduction, the following was used: automated exposure control, adjustment of mA and/or kV according to patient size. COMPARISON: None. FINDINGS: Image quality: Excellent. CSF spaces: Basal cisterns are patent. No extra-axial fluid collections. Ventricles are normal in size and shape. Brain: No midline shift. No intracranial masses or hemorrhage. Mild cerebral volume loss. [place]-wh[place] te matter interface is normal. Skull and face: Calvarium and visualized facial bones are intact, without suspicious lesions. Sinuses: Visualized sinuses and mastoids are clear. IMPRESSION: No acute intracranial metastatic disease. No significant discrepancy with the preliminary report. Reviewed by: Lex Alfaro MD on 08/20/2020 7:19 AM PDT Approved by: Lex Alfaro MD on 08/20/2020 7:19 AM PDT Station ID: [id number]
[2020-08-20] MEDS ORDERED: ACETAMINOPHEN 325 MG TABLET PO STA (11:19)
[2020-08-20 11:26] VITALS: BP 142/64
== END 2020-08-20 11:46 | disposition home or self-care (01) ==
LOC: EDBD → ED 03:08
DX: R53.1 Weakness (principal); R41.0 Disorientation, unspecified; W06.XXXA Fall from bed, initial encounter; Y92.003 Bedroom of unspecified non-institutional (private) residence as the place of occurrence of the external cause; I11.0 Hypertensive heart disease with heart failure; I50.9 Heart failure, unspecified; I44.4 Left anterior fascicular block; E11.42 Type 2 diabetes mellitus with diabetic polyneuropathy; Z79.4 Long term (current) use of insulin; Z79.82 Long term (current) use of aspirin
CPT/HCPCS: 36415; 70450; 80053; 83690; 83880; 85025; 99283; 99284; A9270

== ENCOUNTER 2020-12-31 11:24 | Outpatient (CLI) | payer MEDICAID | END 2020-12-31 11:25 | disposition short-term general hospital (02) | LOC: EMS 11:24 | DX: R53.1 Weakness (principal); R42 Dizziness and giddiness; R06.02 Shortness of breath | CPT/HCPCS: A0425; A0429; A0999 ==

== ENCOUNTER 2021-02-04 10:48 | Outpatient (CLI) | payer MEDICARE, MEDICAID | END 2021-02-04 10:49 | disposition short-term general hospital (02) | LOC: EMS 10:48 | DX: R06.02 Shortness of breath (principal); R60.0 Localized edema | CPT/HCPCS: A0425; A0429 ==

== ENCOUNTER 2021-03-01 18:37 | Outpatient (CLI) | payer MEDICARE | END 2021-03-01 18:38 | disposition EMS.NT | LOC: EMS 18:37 | DX: Z03.89 Encounter for observation for other suspected diseases and conditions ruled out (principal) ==

== ENCOUNTER 2021-03-18 08:00 | Outpatient (CLI) | payer MEDICARE, MEDICAID ==
[2021-03-18 15:56] LABS: CREATININE 2.7 mg/dL (0.6-1.2); POTASSIUM 4.7 mmol/L (3.5-5.0)
== END 2021-03-18 23:59 ==
LOC: LAB.R 08:00
PROVIDERS: ATTEND Registered Nurse
DX: R79.89 Other specified abnormal findings of blood chemistry (principal)
CPT/HCPCS: 80048

== ENCOUNTER 2021-05-02 11:42 | Outpatient (CLI) | payer MEDICARE, MEDICAID | END 2021-05-02 11:43 | disposition short-term general hospital (02) | LOC: EMS 11:42 | DX: R53.1 Weakness (principal); R19.7 Diarrhea, unspecified; R51.9 Headache, unspecified; R73.9 Hyperglycemia, unspecified | CPT/HCPCS: A0425; A0429 ==

== ENCOUNTER 2021-06-07 14:12 | Outpatient (CLI) | payer MEDICARE, MEDICAID | END 2021-06-07 14:13 | disposition EMS.NT | LOC: EMS 14:12 | DX: S61.412A Laceration without foreign body of left hand, initial encounter (principal); R42 Dizziness and giddiness; Z79.01 Long term (current) use of anticoagulants; W01.0XXA Fall on same level from slipping, tripping and stumbling without subsequent striking against object, initial encounter; Y92.008 Other place in unspecified non-institutional (private) residence as the place of occurrence of the external cause ==

== ENCOUNTER 2021-07-14 11:10 | Outpatient (CLI) | payer MEDICARE, MEDICAID ==
[2021-07-14 15:32] LABS: BASOPHILS # (AUTO) 0.1 10^3/uL (0.0-0.1); BASOPHILS % (AUTO) 0.7 %; EOSINOPHILS # (AUTO) 0.4 10^3/uL (0.0-0.7); HCT - HEMATOCRIT 31.9 % (42.0-52.0); HGB - HEMOGLOBIN 10.9 g/dL (14.0-18.0); LYMPHOCYTES # (AUTO) 1.8 10^3/uL (1.5-3.5); LYMPHOCYTES % (AUTO) 20.8 %; MEAN CORPUSCULAR HEMOGLOBIN 31.5 pg (27.0-31.0); MEAN CORPUSCULAR HGB CONC 34.2 g/dL (32.0-36.0); MEAN CORPUSCULAR VOLUME 92.2 fL (80.0-94.0); MEAN PLATELET VOLUME 10.5 fL (7.4-11.4); MONOCYTES # (AUTO) 0.7 10^3/uL (0.0-1.0); MONOCYTES % (AUTO) 7.6 %; NEUTROPHILS # (AUTO) 5.6 10^3/uL (1.5-6.6); NEUTROPHILS % (AUTO) 65.2 %; PLT - PLATELET COUNT 168 10^3/uL (130-450); RED BLOOD COUNT 3.46 10^6/uL (4.70-6.10); RED CELL DISTRIBUTION WIDTH 13.4 % (12.0-15.0); WHITE BLOOD COUNT 8.5 x10^3/uL (4.8-10.8)
[2021-07-14 15:40] LABS: CALCIUM 9.6 mg/dL (8.5-10.3); CREATININE 2.9 mg/dL (0.6-1.2); PHOSPHORUS 4.2 mg/dL (2.5-4.6); POTASSIUM 4.8 mmol/L (3.5-5.0)
== END 2021-07-14 23:59 | disposition home or self-care (01) ==
LOC: LAB.R 11:10
PROVIDERS: ATTEND Internal Medicine Nephrology
DX: N05.9 Unspecified nephritic syndrome with unspecified morphologic changes (principal); D70.9 Neutropenia, unspecified; E83.30 Disorder of phosphorus metabolism, unspecified; N25.81 Secondary hyperparathyroidism of renal origin; D63.1 Anemia in chronic kidney disease
CPT/HCPCS: 80048; 83970; 84100; 85025

== ENCOUNTER 2021-08-06 16:42 | Outpatient (CLI) | payer MEDICARE, MEDICAID | END 2021-08-06 16:43 | disposition short-term general hospital (02) | LOC: EMS 16:42 | DX: R06.02 Shortness of breath (principal); R60.0 Localized edema; R42 Dizziness and giddiness | CPT/HCPCS: A0425; A0427 ==

== ENCOUNTER 2021-10-10 12:09 | Outpatient (CLI) | payer MEDICARE, MEDICAID | END 2021-10-10 12:10 | disposition short-term general hospital (02) | LOC: EMS 12:09 | DX: R06.02 Shortness of breath (principal); R07.89 Other chest pain; R60.0 Localized edema; R42 Dizziness and giddiness | CPT/HCPCS: A0425; A0429 ==